=== PATIENT | female | born 1960 | race Caucasian/White ===

== ENCOUNTER 2018-09-13 20:10 | Emergency (ER) | payer OTHER ==
[~2018-09-13] VITALS: Ht 157.5 cm; Wt 74.8 kg
[2018-09-13 20:20] VITALS: Ht 157.5 cm; Wt 74.8 kg
[2018-09-13 21:02] VITALS: BP 150/85
== END 2018-09-13 21:43 | disposition home or self-care (01) ==
LOC: ED 20:10
DX: F41.9 Anxiety disorder, unspecified (principal); I10 Essential (primary) hypertension; Z88.2 Allergy status to sulfonamides; Z88.1 Allergy status to other antibiotic agents